=== PATIENT | female | born 1990 | race Caucasian/White ===

== ENCOUNTER 2016-10-24 19:43 | Emergency (ER) | payer MEDICAID ==
[~2016-10-24] VITALS: Ht 162.6 cm; Wt 53.3 kg
[2016-10-24] MEDS ORDERED: SODIUM CHLORIDE FLUSH 10ML SYR IVF ONE (20:00)
[2016-10-24] MEDS ORDERED: SODIUM CHLORIDE 0.9% 1,000ML IVBOLUS ONE (20:00)
[2016-10-24] MEDS ORDERED: DIPHENHYDRAMINE 50 MG/ML, 1ML IVPush ONE (20:00)
[2016-10-24] MEDS ORDERED: KETOROLAC 30 MG/1 ML IVPush ONE (20:00)
[2016-10-24] MEDS ORDERED: METOCLOPRAMIDE 5 MG/ML, 2ML IVPush ONE (20:00)
[2016-10-24] MEDS ORDERED: SUMATRIPTAN 6MG/0.5ML SQ ONE ×2 (20:00→22:04)
[2016-10-24] MEDS ORDERED: DIPHENHYDRAMINE 50 MG/ML, 1ML ONE (22:04)
[2016-10-24] MEDS ORDERED: METOCLOPRAMIDE 5 MG/ML, 2ML ONE (22:04)
[2016-10-24] MEDS ORDERED: KETOROLAC 30 MG/1 ML ONE (22:04)
[2016-10-24 23:56] VITALS: BP 102/70
== END 2016-10-25 | disposition home or self-care (01) ==
LOC: ED 23:18
DX: G43.909 Migraine, unspecified, not intractable, without status migrainosus (principal); F17.210 Nicotine dependence, cigarettes, uncomplicated
CPT/HCPCS: 96361; 96372; 96374; 96375; 99284; J1200; J1885; J2765; J3030; J7030

== ENCOUNTER 2019-06-05 23:18 | Emergency (ER) | payer BC, OTHER ==
[~2019-06-05] VITALS: Ht 162.6 cm; Wt 56.0 kg
[2019-06-06] MEDS ORDERED: ACETAMINOPHEN 500 MG TABLET PO ONE
[2019-06-06] MEDS ORDERED: IBUPROFEN 600 MG TABLET ONE
[2019-06-06] MEDS ORDERED: ACETAMINOPHEN 500 MG TABLET ONE
[2019-06-06] MEDS ORDERED: IBUPROFEN 200 MG TABLET PO ONE
[2019-06-06] MEDS ORDERED: CLINDAMYCIN 300 MG CAPSULE PO ONE
[2019-06-06] MEDS ORDERED: CLINDAMYCIN 300 MG CAPSULE ONE (00:09)
[2019-06-06 00:13] VITALS: BP 100/70
== END 2019-06-06 00:19 | disposition home or self-care (01) ==
LOC: ED 23:59
DX: H92.01 Otalgia, right ear (principal); L03.211 Cellulitis of face; G43.909 Migraine, unspecified, not intractable, without status migrainosus; F17.200 Nicotine dependence, unspecified, uncomplicated; Z72.89 Other problems related to lifestyle
CPT/HCPCS: 99284

== ENCOUNTER 2020-02-15 04:16 | Emergency (ER) | payer SELFPAY ==
[~2020-02-15] VITALS: Ht 162.6 cm; Wt 51.4 kg
--- NOTE | 2020-02-15 04:36 | NUR ---
Pt given urine cup and asked to provide sample, pt states she doesn't know if she can, pt then provided with water and pt states she will try
--- NOTE | 2020-02-15 04:48 | NUR ---
urine collected and walked to lab at this time
[2020-02-15 04:59] LABS: MICROSCOPIC INDICATED
[2020-02-15 05:30] VITALS: BP 106/72
== END 2020-02-15 05:32 | disposition home or self-care (01) ==
LOC: ED 04:47
DX: N30.00 Acute cystitis without hematuria (principal); R30.0 Dysuria; R31.9 Hematuria, unspecified; G43.909 Migraine, unspecified, not intractable, without status migrainosus; Z88.0 Allergy status to penicillin; Z88.1 Allergy status to other antibiotic agents; Z90.710 Acquired absence of both cervix and uterus
CPT/HCPCS: 81001; 87077; 87086; 87186; 99283